=== PATIENT | female | born 1965 | race Caucasian/White ===

== ENCOUNTER 2017-09-11 15:07 | Emergency (ER) | payer SELFPAY ==
[~2017-09-11 15:07] MED LIST: ASCO500T8 PO; CHOL200024 PO; CYAN100072 PO; IBUP-1484 PO; IBUP200T49 PO; IRON PO; OXYC-302 PO
== END 2017-09-11 15:44 | disposition left against medical advice (07) ==
LOC: ED 15:28
DX: M54.9 Dorsalgia, unspecified (principal); Z53.21 Procedure and treatment not carried out due to patient leaving prior to being seen by health care provider